=== PATIENT | female | born 1955 | race Native Hawaiian/Other Pacific Islander ===

== ENCOUNTER 2022-12-13 09:48 | Outpatient (CLI) | payer OTHER | END 2022-12-13 18:58 | disposition home or self-care (01) | LOC: RAD 09:48 | PROVIDERS: ATTEND Internal Medicine | DX: Z13.820 Encounter for screening for osteoporosis (principal); W19.XXXA Unspecified fall, initial encounter; S32.000A Wedge compression fracture of unspecified lumbar vertebra, initial encounter for closed fracture ==